=== PATIENT | male | born 2000 | race Caucasian/White ===

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

== ENCOUNTER 2019-04-22 12:01 | Emergency (ER) | payer OTHER ==
[2019-04-22 12:27] VITALS: BP 131/83
--- NOTE | 2019-04-22 12:33 | UC ---
Hand/Wrist HPI - HPI Summary HPI Summary: 18 yo male presents with right hand pain. He tells me that last night during baseball practice he was hit in the right hand with a fastball pitch. Since that time has had pain, swelling, bruising, and decreased ROM. Ball hit him on the right 2nd MCP. He is right handed. Denies numbness or tingling. - History Of Current Complaint Chief Complaint: UCUpperExtremity Stated Complaint: FINGER INJURY Time Seen by Provider: 04/22/19 12:33 Hx Obtained From: Patient Onset/Duration: Sudden Onset Severity Initially: Mild Severity Currently: Mild Pain Intensity: 3 Pain Scale Used: 0-10 Numeric - Allergies/Home Medications Allergies/Adverse Reactions: Allergies Allergy/AdvReac Type Severity Reaction Status Date / Time No Known Allergies Allergy Verified 04/22/19 12:22 Home Medications: Home Medications Naproxen Sodium [Aleve] 220 mg PO ONCE 04/22/19 [History Confirmed 04/22/19] PMH/Surg Hx/FS Hx/Imm Hx - Additional Past Medical History Additional PMH: None - Surgical History Surgical History: Yes Surgery Procedure, Year, and Place: T&A. right ulna surgery - Family History Known Family History: Positive: Other - postive [facility] for contusion - Social History Lives: With Family Alcohol Use: None Substance Use Type: None Smoking Status (MU): Never Smoked Tobacco - Immunization History Vaccination Up to Date: Yes Review of Systems All Other Systems Reviewed And Are Negative: No Constitutional: Positive: Negative Skin: Positive: Negative Respiratory: Positive: Negative Cardiovascular: Positive: Negative Neurovascular: Positive: Negative Musculoskeletal: Positive: Other: - Right index finger pain Neurological/Mental Status: Positive: Negative Psychological: Positive: Negative Physical Exam - Summary Physical Exam Summary: GENERAL: NAD. WDWN. No pain distress. SKIN: No rashes, sores, lesions, or open wounds. CHEST: No accessory muscle use. Breathing comfortably and in no distress. CV: Pulses intact radial and ulnar. Cap refill <2seconds MSK: RIGHT HAND: Index finger with moderate edema and mild ecchymosis. Moderate ttp at proximal phalanx and MCP. Decreased active ROM, but full passive ROM at MCP, PIP, and DIP. NEURO: Alert. Sensations intact hand and all fingers. PSYCH: Age appropriate behavior. Triage Information Reviewed: Yes Vital Signs: Initial Vital Signs Temp 97.8 F 04/22/19 12:23 Pulse 62 04/22/19 12:23 Resp 16 04/22/19 12:23 BP 131/83 04/22/19 12:23 Pulse Ox 100 04/22/19 12:23 Vital Signs Reviewed: Yes Diagnostics - Radiology Hand XR Radiology Interpretation Completed By: Radiologist Summary of Radiographic Findings: IMPRESSION: NO ACUTE OSSEOUS INJURY. IF SYMPTOMS PERSIST, RECOMMEND REPEAT IMAGING. Hand/Wrist Course/Dx - Course Course Of Treatment: XR as above. Suspect contusion/sprain. Placed in finger splint and advised to RICE. - Differential Dx/Diagnosis Provider Diagnosis: Finger contusion Discharge ED - Sign-Out/Discharge Documenting (check all that apply): Patient Departure All imaging exams completed and their final reports reviewed: Yes - Discharge Plan Condition: Stable Disposition: HOME Patient Education Materials: Finger Sprain (ED) Referrals: Pedro Garcia MD [Primary Care Provider] - [facility] [Provider Group] - If Needed Additional Instructions: If you develop a fever, shortness of breath, chest pain, new or worsening symptoms - please call your PCP or go to the ED immediately. The X-ray of your hand/finger was normal today Rest, Ice, and elevate your finger to reduce pain and swelling Use the finger splint for comfort If your symptoms do not improve - within 1 week please schedule an appointment with [facility] for a recheck - Billing Disposition and Condition Condition: STABLE Disposition: Home
== END 2019-04-22 13:20 | disposition home or self-care (01) ==
LOC: UCEAST 12:01
DX: S60.021A Contusion of right index finger without damage to nail, initial encounter (principal); W21.03XA Struck by baseball, initial encounter; Y93.64 Activity, baseball; Y92.9 Unspecified place or not applicable
CPT/HCPCS: 99212; G0463